=== PATIENT | female | born 1960 | race Caucasian/White ===

== ENCOUNTER → 2024-01-31 10:46 | Outpatient (REF) | payer OTHER, SELFPAY ==
[2024-01-31 16:17] LABS: % Basophils 0.8 % (0-2); % Eosinophils 1.9 % (0-6); % Immature Granulocytes 0.3 % (0-0.5); % Lymphocytes 32.6 % (20.5-51.1); % Monocytes 9.4 % (1.7-9.3); Absolute Eosinophils 0.1 10^3/uL (0-0.7); Absolute Lymphocytes 1.2 10^3/uL (1.2-3.4); Absolute Monocytes 0.4 10^3/uL (0.1-0.6); Absolute Neutrophils 2.1 10^3/uL (1.4-6.5); Hematocrit 41.8 % (37.0-47.0); Hemoglobin 14.4 g/dL (12.0-16.0); Mean Corp Hgb Conc. 34.4 g/dL (33.0-37.0); Mean Corpuscular Volume 89.9 fL (81.0-99.0); Mean Platelet Volume 10.3 fL (7.4-10.4); Nucleated Red Blood Cells % 0 %; Platelet Count 269 10^3/uL (130-400); Red Blood Cell Count 4.65 10^6/uL (4.20-5.40); Red Cell Dist. Width 12.7 % (11.5-14.5); White Blood Cell Count 3.7 10^3/uL (4.8-10.8)
[2024-01-31 16:23] LABS: ALT (SGPT) 20 U/L (0-35); AST (SGOT) 24 U/L (14-36); Albumin 3.5 g/dl (3.5-5.0); Alkaline Phosphatase 116 U/L (38-126); Blood Urea Nitrogen 18 mg/dl (7-17); Carbon Dioxide 30 mmol/L (22-30); Chloride 103 mmol/L (98-107); Glucose 85 mg/dl (70-99); HDL Cholesterol 52 mg/dl; LDL Cholesterol, Calculated 34 mg/dl; Potassium 4.1 mmol/L (3.5-5.1); Sodium 140 mmol/L (135-145); Total Bilirubin 2.3 mg/dl (0.2-1.3); Total Cholesterol 93 mg/dl (50-199); Total Protein 5.8 g/dl (6.3-8.2); Triglyceride 38 mg/dl (10-149); Very Low Density Lipoprotein 7 mg/dl (0-30); eGFR > 60.00
[2024-01-31 16:34] LABS: LDL Cholesterol, Direct 31 mg/dl
[2024-01-31 16:52] LABS: TSH Reflex To Free T4 < 0.02 uIU/ml (0.47-4.68)
[2024-01-31 17:22] LABS: Free T4 1.54 ng/dl (0.78-2.19)
== END ==
LOC: HWRAD 10:46
PROVIDERS: ATTENDING PHYSICIAN Chiropractor
DX: Z13.220 Encounter for screening for lipoid disorders (principal); Z00.01 Encounter for general adult medical examination with abnormal findings; E03.9 Hypothyroidism, unspecified; I10 Essential (primary) hypertension; M25.561 Pain in right knee; M25.562 Pain in left knee
CPT/HCPCS: 36415; 73564; 80053; 80061; 83721; 84439; 84443; 85025

== ENCOUNTER → 2024-03-04 11:00 | Outpatient (REF) | payer OTHER, SELFPAY | LOC: HWRAD 11:00 | PROVIDERS: ATTENDING PHYSICIAN Urology; FAMILY PHYSICIAN Family Medicine | DX: N39.0 Urinary tract infection, site not specified (principal) | CPT/HCPCS: 76775 ==

== ENCOUNTER 2024-04-09 18:32 | Emergency (ER) | payer OTHER, SELFPAY ==
[2024-04-09 18:37] VITALS: BP 119/86
[2024-04-09 19:35] VITALS: BMI 26.5
--- NOTE | 2024-04-09 19:47 | ED.GENMED ---
History of Present Illness
General
Chief Complaint: Musculo-Skeletal Complaint
Source: patient
Time Seen by Provider: 04/09/24 19:10
History of Present Illness
History of Present Illness:
63-year-old female presenting to the emergency department for evaluation of atraumatic left knee pain that began earlier today when she stood up from a chair noting that she felt acute pain and as if she 'pulled muscle right off the bone'. Patient
has been able to ambulate however with a noticeable limp. Denies any direct trauma, fevers, chills, rigors, calf pain or edema or any other concerns. She notes she has seen orthopedics in the past for bilateral knee issues but states today's pain
felt a little bit different.
Past History
Past History
ED Past Medical History: None
ED Past Surgical History: Orthopedic and Other (Gastric bypass)
Social History
Tobacco: Non-smoker
Alcohol: None
Drug: None
Personal:
Living: with family
Review of Systems
Review of Systems
All Other Systems: ROS reviewed and negative except as documented in HPI and ROS
Phy Exam
Physical Exam
Physical Exam:
GENERAL: Alert , in no apparent distress
EYE: conjunctiva clear
Head: Normocephalic atraumatic
NECK: Supple,
ENT: mmm.
LUNGS: no acute respiratory distress
NEUROLOGICAL: Alert and oriented
SKIN: Warm and dry, skin intact.
MUSCULOSKELETAL: Soft tissue swelling circumferentially over the left knee with tenderness most pronounced both medial and lateral to the patella superiorly. Patient does allow for some range of motion however has pain while doing so. No overlying
erythema. Extremities otherwise warm and well perfused
PSYCH: Normal and appropriate interaction.
Scores
Heart Failure Risk
Heart Failure Risk Score: Not Applicable
Heart Score for Chest Pain Patients
STEMI patient?: Not applicable
Withdrawal Assessment of Alcohol
Withdrawal Assessment Completed?: Not applicable
Course
Orders/Labs/Results
Orders:
Orders
04/09/24 18:39
Knee, Left 4 or More Views [CR Knee - Left 4 Or More View*] Urgent
Comment:
Reason For Exam: pain, swelling
04/09/24 19:48
Inocencio Wrap Left-Treatment ONCE
Vital Signs
Initial and Last Documented VS:
Initial Vital Signs
Temp Pulse Resp BP Pulse Ox
98.4 F 71 16 119/86 98
04/09/24 18:37 04/09/24 18:37 04/09/24 18:37 04/09/24 18:37 04/09/24 18:37
Last Documented Vital Signs
Temp Pulse Resp BP Pulse Ox
98.4 F 71 16 119/86 98
04/09/24 18:37 04/09/24 18:37 04/09/24 18:37 04/09/24 18:37 04/09/24 18:37
Procedures
Incision/Drainage/Joint Aspiration
Left Knee:
Anethesia: 1% Lidocaine
Preparation: cleaned with Hibiclens
Type of procedure: aspiration
How much fluid was obtained?: none
Fluid description: blood tinged
Treatment: bandaid applied
MDM/Problems Addressed
Differential Diagnosis Includes:
Osteoarthritis, ligamentous injury, meniscal injury, both the patellar tendon and quadriceps tendon appear intact, I do not have concern for infectious etiology given no overlying erythema/fevers and patient still allows for range of motion
MDM/Problems Addressed:
63-year-old female presenting to the ER for evaluation of atraumatic left knee pain that began acutely earlier today. She does have moderate soft tissue swelling. Arthrocentesis attempted for fluid analysis as well as symptomatic relief however
only scant blood-tinged fluid removed. Not enough fluid to send for analysis. Advised ice and elevation. Offered knee immobilizer but patient states keeping her knee fully straight causes her more pain. Information for orthopedics provided.
Aware of return precautions. Stable for discharge.
*Radiology
Radiology exam reviewed: preliminary read by ED provider (Arthritic changes noted)
*Pulse Oximetry
Patient hypoxic: no
*Critical Care Note
Total Time (30-74mins, 75-104mins- exclusive of procedures): Not Applicable
Data Reviewed
Review of Other/Old Records Reveals: Radiology Studies
Source: patient
ED Attending Note
-
Portions of this chart may have been created with voice recognition software.� Occasional wrong word or��sound alike� substitutions may have occurred due to the inherent limitations of voice recognition software.
Discharge Plan
Departure
Patient Disposition: Home (Routine Discharge)
Date of Disposition: 04/09/24
Time of Disposition: 19:47
Patient with high blood pressure during this ER visit?: No
Discharge Problem:
Left knee pain
Instructions: Knee Pain (DC)
Prescriptions:
No Action
fluoxetine 20 MG capsule
20 mg PO DAILY
hydrocodone-acetaminophen 5 MG/500 MG tablet
1 tab PO .Q4-6HPRN PRN (Reason: PAIN) Qty: 20 0RF
Referrals:
Masood Gonzalez MD [Active] - (Ortho - Please call for appointment)
Interventions
Interventions:
*Risk Screen - Suicide Last Done: 04/09/24 18:37
*General Assessment Last Done: 04/09/24 18:37
*Neglect/Abuse Screening Last Done: 04/09/24 19:36
ED- Fall Risk Assessment Last Done: 04/09/24 19:35
*ED COVID-19 Vaccine History Last Done: 04/09/24 19:35
*Nursing Disposition Last Done: 04/09/24 19:57
ED-Musculoskeletal Assessment Last Done: 04/09/24 19:35
Discharge Date and Time
Discharge Date/Time: 04/09/24 19:58
Print Language: PASHTO
== END 2024-04-09 19:58 | disposition home or self-care (01) ==
LOC: EMR 18:32
PROVIDERS: EMERGENCY PHYSICIAN Emergency Medicine
DX: M25.562 Pain in left knee (principal); Z98.84 Bariatric surgery status
CPT/HCPCS: 99283; 73564

== ENCOUNTER 2024-05-31 11:37 | Emergency (ER) | payer OTHER, SELFPAY ==
[2024-05-31 11:45] VITALS: BP 118/79
[2024-05-31 12:13] LABS: % Basophils 0.9 % (0-2); % Eosinophils 1.4 % (0-6); % Immature Granulocytes 0.2 % (0-0.5); % Lymphocytes 28.1 % (20.5-51.1); % Monocytes 9.3 % (1.7-9.3); % Neutrophils 60.1 % (42.2-75.2); Absolute Eosinophils 0.1 10^3/uL (0-0.7); Absolute Lymphocytes 1.2 10^3/uL (1.2-3.4); Absolute Monocytes 0.4 10^3/uL (0.1-0.6); Absolute Neutrophils 2.7 10^3/uL (1.4-6.5); Hemoglobin 12.1 g/dL (12.0-16.0); Mean Corp Hgb Conc. 33.6 g/dL (33.0-37.0); Mean Corpuscular Hgb 32.4 pg (27.0-31.0); Mean Corpuscular Volume 96.5 fL (81.0-99.0); Mean Platelet Volume 9.5 fL (7.4-10.4); Nucleated Red Blood Cells % 0 %; Platelet Count 284 10^3/uL (130-400); Red Blood Cell Count 3.73 10^6/uL (4.20-5.40); Red Cell Dist. Width 11.8 % (11.5-14.5); White Blood Cell Count 4.4 10^3/uL (4.8-10.8)
[2024-05-31 12:27] LABS: ALT (SGPT) 34 U/L (0-35); AST (SGOT) 32 U/L (14-36); Albumin 3.4 g/dl (3.5-5.0); Alkaline Phosphatase 100 U/L (38-126); Blood Urea Nitrogen 15 mg/dl (7-17); Calcium 9.1 mg/dl (8.4-10.2); Carbon Dioxide 31 mmol/L (22-30); Chloride 102 mmol/L (98-107); Glucose 71 mg/dl (70-99); Potassium 4.4 mmol/L (3.5-5.1); Sodium 135 mmol/L (135-145); Total Bilirubin 1.7 mg/dl (0.2-1.3); Total Protein 5.4 g/dl (6.3-8.2); eGFR > 60.00
[2024-05-31 12:41] LABS: Urine Albumin Negative (Neg - Trace); Urine Bilirubin Negative (Negative); Urine Character Clear (Clear); Urine Color Yellow; Urine Glucose Negative (Negative); Urine Ketone Negative (Negative); Urine Leukocyte Negative (Negative); Urine Nitrite Negative (Negative); Urine Occult Blood Negative (Negative); Urine Specific Gravity 1.015 (<1.030); Urine Urobilinogen 2+ (Neg - 1+); Urine pH 6.5 (5.0-9.0)
[2024-05-31 14:00] VITALS: BP 114/81
--- NOTE | 2024-05-31 15:21 | ED.GENMED ---
History of Present Illness
General
Chief Complaint: Urinary Symptoms
Source: patient
Time Seen by Provider: 05/31/24 15:01
History of Present Illness
History of Present Illness:
64-year-old female presents to the emergency room complaining of dysuria, vaginal itching and frequency. Patient has had these symptoms intermittently for weeks. She evidently was seen by her urologist at [facility] urology and started on
antibiotics. She has been on several courses of different antibiotics without improvement. Patient states she had a cystoscopy which was clear. She called the urology office today stating her symptoms are no better and driving her crazy and they
referred her to the emergency room for IV antibiotics. Patient does believe she had a positive urine culture in the urology office was supposed to fax that information to us. Patient denies any fever, chills, nausea or vomiting. She denies any
flank pain. She denies any vaginal discharge.
Past History
Past History
ED Past Medical History: None
ED Past Surgical History: Orthopedic and Other (Gastric bypass)
Social History
Tobacco: Non-smoker
Alcohol: None
Drug: None
Personal:
Living: with family
Phy Exam
Physical Exam
Physical Exam:
General: Awake, Alert, Oriented X3. No acute distress.
Vitals: unremarkable
Head: Atraumatic
Eyes: Pupils equal, EOMI
Throat: Airway intact, no exudates
Neck: Trachea midline
Lungs: Clear and equal b/l
Heart: Regular rate, no murmurs
Abd: Soft, Nontender, No pulsatile mass
Back: No CVA tenderness to
Neuro: Nonfocal
Skin: Warm, dry, no rash
Extremities: pulses equal b/l, no edema
Course
Orders/Labs/Results
Orders:
Orders
05/31/24 12:00
CBC/With Diff [Complete Blood Count/With Diff] Urgent
Comprehensive Metabolic Panel Urgent
Urinalysis Reflex To Culture Urgent
Date Specimen was Collected: 05/31/24
Time Specimen was Collected: 11:52
Chlamydia/GC by PCR Urgent
LING Source: U
Specimen Description:
Date Specimen was Collected: 05/31/24
Time Specimen was Collected: 11:52
05/31/24 15:23
Add On- LAB Urgent
Tests Added?: urine gc/chlamydia
CT Abd/pel Without Iv Or Oral Urgent
Comment:
Reason For Exam: dysuria, pelvic pain eval for stone
05/31/24 19:36
Fosfomycin [Monurol] 3 gm PO ONCE ONE
Abnormal Lab Results
05/31/24
12:00
WBC 4.4 L 10^3/uL
(4.8-10.8)
RBC 3.73 L 10^6/uL
(4.20-5.40)
Hct 36.0 L %
(37.0-47.0)
MCH 32.4 H pg
(27.0-31.0)
Carbon Dioxide 31 H mmol/L
(22-30)
Total Bilirubin 1.7 H mg/dl
(0.2-1.3)
Total Protein 5.4 L g/dl
(6.3-8.2)
Albumin 3.4 L g/dl
(3.5-5.0)
Urine Urobilinogen 2+ A
(Neg - 1+)
05/31/24 12:00
05/31/24 12:00
Vital Signs
Initial and Last Documented VS:
Initial Vital Signs
Temp Pulse Resp BP Pulse Ox
98.2 F 80 16 118/79 97
05/31/24 11:45 05/31/24 11:45 05/31/24 11:45 05/31/24 11:45 05/31/24 11:45
Last Documented Vital Signs
Temp Pulse Resp BP Pulse Ox
98.2 F 83 16 110/70 98
05/31/24 11:45 05/31/24 19:51 05/31/24 19:51 05/31/24 19:51 05/31/24 19:51
MDM/Problems Addressed
Differential Diagnosis Includes:
UTI, kidney stone, noninfectious urethritis, painful bladder syndrome
MDM/Problems Addressed:
Urinalysis here is not at all consistent with urinary tract infection with negative leukocyte esterase and nitrates. CT obtained the report suggests there is no obstructing stone. Radiologist mentions a punctate area of calcification and some
anatomical variations of the collecting system which could be cystic or hydronephrosis. A recent ultrasound shows these to be cyst. Therefore I think it is very unlikely the patient has a kidney stone causing her symptoms. I did communicate with
the patient's urology office. They did send a copy of her office notes and her urine culture from May 08. The culture did grow out E. coli but there were 50,000 to 100,000 colony-forming units which is somewhat less than the typical greater than
100,000 colony-forming units that is typically diagnostic of a urinary tract infection. Of course the patient was having symptoms at that time the culture came back so would seem logical to treat. However patient has been through several courses
of antibiotics. Her symptoms seem to wax and wane in intensity. She called the urology office because her pain was significant yesterday however today she feels much better. We can treat with a dose of Monurol now which should be active against
this E. coli though I am not convinced the patient has a true infection. I think it is important she follow-up with urogynecology to evaluate noninfectious sources for her pain. I have provided information for Dr. Riddle. Though her current
urology office, [facility] may have urogynecologist available.
*Radiology
Radiology exam reviewed: radiology read reviewed
*Critical Care Note
Total Time (30-74mins, 75-104mins- exclusive of procedures): Not Applicable
ED Attending Note
-
Portions of this chart may have been created with voice recognition software.� Occasional wrong word or��sound alike� substitutions may have occurred due to the inherent limitations of voice recognition software.
Discharge Plan
Departure
Patient Disposition: Home (Routine Discharge)
Date of Disposition: 05/31/24
Time of Disposition: 19:15
Patient with high blood pressure during this ER visit?: No
Condition: Good
Discharge Problem:
Dysuria
Instructions: Bladder Pain Syndrome (Interstitial Cystitis) ED
Prescriptions:
No Action
levothyroxine 125 mcg Tablet
125 mcg PO DAILY
duloxetine [Cymbalta] 60 mg Capsule,Delayed Release(Dr/Ec)
60 mg PO DAILY
Wegovy 2.4 mg/0.75 mL Pen Injector
2.4 mg SC QWEEK
Referrals:
Salome Riddle DO [Active] -
Giles Garcia CRNP [Family Provider] -
Activity Restrictions/Additional Instructions:
We have given you the dose of an antibiotic that would be effective against the type of bacteria seen on your culture on May 07. However I believe it is possible your symptoms are not related to an infection but some other process causing
irritation of the bladder. I have given you contact information for a urogynecologist here at [place]. However he given your already [facility] you might also see if they have a urogynecologist as part of their practice.
Either way I think you should see a urogynecologist for further evaluation particularly if this dose of antibiotic does not resolve the symptoms
Interventions
Interventions:
*Risk Screen - Suicide Last Done: 05/31/24 11:45
*General Assessment Last Done: 05/31/24 15:20
*Neglect/Abuse Screening Last Done: 05/31/24 11:45
*ED- Fall Risk Assessment Last Done: 05/31/24 15:20
*ED COVID-19 Vaccine History Last Done: 05/31/24 15:20
*Nursing Disposition Last Done: 05/31/24 20:00
ED-Female Genitourinary Assessment Last Done: 05/31/24 15:20
Discharge Date and Time
Discharge Date/Time: 05/31/24 20:00
Print Language: SWEDISH
[2024-05-31 15:59] VITALS: BP 115/84
[2024-05-31 17:56] VITALS: BP 103/73
[2024-05-31 19:51] VITALS: BP 110/70
[2024-05-31] MEDS: MONUROL 3 GM PO (19:52)
== END 2024-05-31 20:00 | disposition home or self-care (01) ==
LOC: EMR 11:37
PROVIDERS: Emergency Medicine; EMERGENCY PHYSICIAN Emergency Medicine
DX: R30.0 Dysuria (principal); B96.20 Unspecified Escherichia coli [E. coli] as the cause of diseases classified elsewhere; Z98.84 Bariatric surgery status
CPT/HCPCS: 99284; 74176; 80053; 81003; 85025; 87491; 87591